=== PATIENT | female | born 1955 | race Native Hawaiian/Other Pacific Islander ===

== ENCOUNTER 2016-06-13 13:25 | Inpatient (IN) | payer OTHER ==
[~2016-06-13] VITALS: Ht 162.6 cm; Wt 72.7 kg
[2016-06-13] VITALS (10 sets, daily range): BP systolic 60–139; BP diastolic 36–95; PULSE 84–104; RESP 16–20; TEMP 96.5–98.5; O2SAT 92–98
[~2016-06-13 13:25] MED LIST: FURO1TAB93 PO; LEVA500T PO; LORT10TA PO; PYRI200T4 PO; TRAZ150T75 PO; ZYRT10TA12 PO
[2016-06-13] MEDS ORDERED: ZYRT10CA PO (14:09)
[2016-06-13] MEDS ORDERED: BACT800T5 PO (14:09)
[2016-06-13] MEDS ORDERED: SODIUM CHLOR 0.9% 1000 ML INJ 1,000 ML IV SCH (14:23)
[2016-06-13] MEDS ORDERED: SODIUM CHLORIDE 0.9% FLUSH 10 ML FLUSH IV FLUSH PRN ×2 (14:30→16:15)
[2016-06-13] MEDS ORDERED: ONDANSETRON HCL 4 MG/2 ML VIAL IVP ONE ×2 (14:30→16:00)
[2016-06-13 15:16] LABS: AUTOMATED NEUTROPHIL # 19.2 TH/MM3 (1.8-7.7); BASOPHIL % 0.2 % (0.0-2.0); EOSINOPHIL # 0.2 TH/MM3 (0-0.4); EOSINOPHIL % 0.8 % (0.0-4.0); HEMATOCRIT 30.2 % (35.0-46.0); HEMO FLAGS DIFF FINAL; LYMPH % 5.6 % (9.0-44.0); LYMPHOCYTE # 1.2 TH/MM3 (1.0-4.8); MEAN CORPUSCULAR HEMOGLOBIN 27.4 PG (27.0-34.0); MONO % 3.8 % (0.0-8.0); NEUT % 89.6 % (16.0-70.0); PLATELET COUNT 348 TH/MM3 (150-450); RED BLOOD COUNT 3.64 MIL/MM3 (4.00-5.30); RED CELL DISTRIBUTION WIDTH 13.6 % (11.6-17.2); WHITE BLOOD COUNT 21.4 TH/MM3 (4.0-11.0)
[2016-06-13 15:17] LABS: BACTERIA, URINE MANY /hpf; BLOOD, URINE LARGE (NEG); COMMENT (UR) CULTURE INDICATED; CULTURE IF INDICATED CULTURE INDICATED; GLUCOSE,URINE NEG (NEG); KETONE, URINE NEG (NEG); NITRITE,URINE NEG (NEG); PH, URINE 6.5 (5.0-8.5); SQUAMOUS EPITHELIAL CELL URINE 9 /hpf (0-5); URINE COLOR YELLOW (YELLW/STRAW)
[2016-06-13 15:29] LABS: ALT (GPT) 19 U/L (10-53); ANION GAP 12 MEQ/L (5-15); AST (GOT) 11 U/L (15-37); BICARBONATE 19.6 MEQ/L (21.0-32.0); BLOOD UREA NITROGEN 40 MG/DL (7-18); CHLORIDE 104 MEQ/L (98-107); GLOMERULAR FILTRATION RATE 14 ML/MIN (>89); POTASSIUM 3.6 MEQ/L (3.5-5.1); SODIUM (NA) 136 MEQ/L (136-145)
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
[2016-06-13 15:31] LABS: ALKALINE PHOSPHATASE 90 U/L (45-117); TOTAL BILIRUBIN ADULT 0.3 MG/DL (0.2-1.0)
[2016-06-13] MEDS ORDERED: PIPERACIL-TAZO 4.5 GM PREMIX 100 ML IV STA (15:56)
[2016-06-13] MEDS ORDERED: MORPHINE SULFATE 4 MG/ML INJ IV ONE (16:00)
[2016-06-13] MEDS ORDERED: SODIUM CHLOR 0.9% 1000 ML INJ 1,000 ML IV ONE ×3 (16:06→16:15)
[2016-06-13] MEDS ORDERED: SODIUM CHLOR 0.9% 1000 ML INJ 100 ML IV ONE (16:06)
[2016-06-13] MEDS ORDERED: CHLORHEXIDINE GLUCONATE 2 % 1 PACK (2 CLOTHS) TOP PRN (16:15)
[2016-06-13] MEDS ORDERED: MISCELLANEOUS NURSING INFORMATION XX SCH (16:15)
[2016-06-13] MEDS ORDERED: RESP: ALBUTEROL 2.5 MG/IPRATROPIUM 0.5 MG NEB (PRN) NEB (16:45)
[2016-06-13] MEDS ORDERED: SODIUM CHLOR 0.9% 1000 ML INJ 2,000 ML IV ONE (17:00)
[2016-06-13] MEDS ORDERED: VANCOMYCIN INJ 1,000 MG in SODIUM CHLOR 0.9% 250 ML INJ 250 ML IV ONE (17:00)
--- NOTE | 2016-06-13 17:11 | RADRPT ---
EXAM DATE/TIME: 06/13/2016 15:27 [facility] COMPARISON: CHEST SINGLE AP, July 22, 2012, 21:41. INDICATIONS : Chest pain. MEDICAL HISTORY : urinary tract infection x 2 weeks SURGICAL HISTORY : None. ENCOUNTER: Initial ACUITY: 2 weeks PAIN SCORE: 9/10 LOCATION: Bilateral chest lower FINDINGS: One focally clear. No pleural effusion is evident. Cardiomediastinal contours are satisfactory with h eart size upper limits of normal for technique and projection. CONCLUSION: No acute disease Noman Sam MD on June 13, 2016 at 17:08 Board Certified Radiologist. This report was verified electronically.
--- NOTE | 2016-06-13 17:13 | RADRPT ---
EXAM DATE/TIME: 06/13/2016 15:33 [facility] COMPARISON: CHEST SINGLE AP, June 13, 2016, 15:27. INDICATIONS : Constipation. MEDICAL HISTORY : urinary tract infection x 2 weeks. SURGICAL HISTORY : None. ENCOUNTER: Initial ACUITY: 2 weeks PAIN SCORE: 9/10 LOCATION: Bilateral abdomen FINDINGS: There is mild gaseous distention of bowel loops seen over the upper abdomen. What appears to be a seg ment of the transverse colon is mildly dilated to about 7 cm. There is no evidence of pneumoperitoneu m. No suspicious calcific densities are identified. There is degenerative change and scoliosis noted in the spine. CONCLUSION: Nonspecific gaseous distention of bowel Noman Sam MD on June 13, 2016 at 17:10 Board Certified Radiologist. This report was verified electronically.
[2016-06-13] MEDS: VASOPRESSIN INJ 40 UNITS in DEXTROSE 5% IN WATER 100ML INJ 98 ML IV SCH ×2 (17:34)
[2016-06-13] MEDS ORDERED: DIATRIZOATE MEGLUM/DIATRIZOATE SOD 9 ML CUP ONE ×2 (17:41)
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
[2016-06-13] MEDS ORDERED: DIATRIZOATE MEGLUM/DIATRIZOATE SOD 9 ML CUP PO ONE (18:15)
--- NOTE | 2016-06-13 20:17 | RADRPT ---
EXAM DATE/TIME: 06/13/2016 19:25 [facility] COMPARISON: CT ABDOMEN & PELVIS W/O CONTRAST, July 23, 2012, 0:28. INDICATIONS : Sepsis, abdominal pain and vomiting. ORAL CONTRAST: No oral contrast ingested. RADIATION DOSE: 14.04 CTDIvol (mGy) MEDICAL HISTORY : Neurogenic bladder. Paraplegic. Constipation. SURGICAL HISTORY : None. ENCOUNTER: Initial ACUITY: 1 week PAIN SCALE: 7/10 LOCATION: Bilateral lower quadrant TECHNIQUE: Volumetric scanning of the abdomen and pelvis was performed. Using automated exposure control and ad justment of the mA and/or kV according to patient size, radiation dose was kept as low as reasonably achievable to obtain optimal diagnostic quality images. FINDINGS: LOWER LUNGS: There is atelectasis in the lung bases and small effusions. Minimal pericardial fluid present. LIVER: Homogeneous density without lesion. There is no dilation of the biliary tree. No calcified gallston es. SPLEEN: Normal size without lesion. PANCREAS: Within normal limits. KIDNEYS: Moderate bilateral hydronephrosis and hydroureter which are unchanged from the previous examination. ADRENAL GLANDS: Within normal limits. VASCULAR: There is no aortic aneurysm. BOWEL/MESENTERY: The stomach, small bowel, and colon demonstrate no acute abnormality. There is no free intraperitone al air or fluid. ABDOMINAL WALL: Within normal limits. RETROPERITONEUM: There is no lymphadenopathy. BLADDER: No wall thickening or mass. REPRODUCTIVE: Within normal limits. INGUINAL: There is no lymphadenopathy or hernia. MUSCULOSKELETAL: Previous pinning of the left hip. Presumed dystrophic calcification lateral to the left hip joint. So ft tissue density probable scarring adjacent to the right ischial tuberosity which is similar to prev ious, however incompletely seen.. CONCLUSION: Stable abdomen appearance as described above Noman Sam MD on June 13, 2016 at 20:11 Board Certified Radiologist. This report was verified electronically.
[2016-06-13] MEDS: SODIUM CHLORIDE 0.9% FLUSH 10 ML FLUSH IV FLUSH SCH (21:00)
[2016-06-13 21:46] LABS: HEMATOCRIT 29.9 % (35.0-46.0); MEAN CELL VOLUME 83.4 FL (80.0-100.0); MEAN CORPUSCULAR HEMOGLOBIN 25.9 PG (27.0-34.0); MEAN CORPUSCULAR HGB CONC 31.1 % (32.0-36.0); PLATELET COUNT 324 TH/MM3 (150-450); RED BLOOD COUNT 3.59 MIL/MM3 (4.00-5.30); RED CELL DISTRIBUTION WIDTH 13.5 % (11.6-17.2); REVIEW FLAG FINAL; WHITE BLOOD COUNT 24.9 TH/MM3 (4.0-11.0)
[2016-06-13 22:04] LABS: BICARBONATE 15.4 MEQ/L (21.0-32.0); POTASSIUM 3.8 MEQ/L (3.5-5.1); TOTAL BILIRUBIN ADULT 0.3 MG/DL (0.2-1.0)
[2016-06-13 22:08] LABS: CALCIUM-PROTEIN CORRECTED 7.4 MG/DL (8.5-10.1)
[2016-06-13] MEDS: LACTATED RINGER'S 1000 ML INJ 1,000 ML IV SCH ×2 (22:23→22:24)
[2016-06-13] MEDS: NOREPINEPHRINE-DEXTROSE DRIP 250 ML IV SCH (22:23)
[2016-06-13] MEDS: ENOXAPARIN SODIUM 30 MG/0.3 ML SYRINGE SQ SCH (22:24)
[2016-06-13] MEDS: PIPERACIL-TAZO 2.25 GM PREMIX 50 ML IV SCH (23:31)
[2016-06-14] VITALS (14 sets, daily range): BP systolic 112–139; BP diastolic 76–87; PULSE 59–113; RESP 17–28; TEMP 97.6–98.6; O2SAT 94–98
[2016-06-14] MEDS ORDERED: ALBUMIN HUMAN 5% 25 GM/500 ML BOTTLE IV ONE (00:45)
[2016-06-14] MEDS: MIDODRINE 5 MG TAB PO SCH ×4 (00:50→16:30)
[2016-06-14] MEDS: HYDROCORTISONE SOD SUCCINATE 100 MG VIAL IV PUSH SCH ×4 (00:50→18:44)
[2016-06-14] MEDS: ACETAMINOPHEN 325 MG TAB PO PRN (00:51)
[2016-06-14] MEDS: CHLORHEXIDINE GLUCONATE 2 % 1 PACK (2 CLOTHS) TOP SCH (04:00)
--- NOTE | 2016-06-14 04:27 | PD.PROCEDR ---
Procedure Note Procedure A time-out was completed verifying correct patient, procedure, site, positioning , and special equipment if applicable. The patient was placed in a dependent position appropriate for central line placement based on the vein to be cannulated. The patients right groin was prepped and draped in sterile fashion. 1% Lidocaine was used to anesthetize the surrounding skin area. A triple lumen 9-Turkish Cordis catheter was introduced into the the common femoral vein using the Seldinger technique and under ultrasound guidance. The catheter was threaded smoothly over the guide wire and appropriate blood return was obtained. Each lumen of the catheter was evacuated of air and flushed with sterile saline. The catheter was then sutured in place to the skin and a sterile dressing applied. Perfusion to the extremity distal to the point of catheter insertion was checked and found to be adequate. Estimated Blood Loss: 1ml The patient tolerated the procedure well and there were no complications. Ej Johnson MD Jun 14, 2016 04:27
[2016-06-14] MEDS: NOREPINEPHRINE-DEXTROSE DRIP 250 ML IV SCH (05:36)
[2016-06-14] MEDS: LACTATED RINGER'S 1000 ML INJ 1,000 ML IV SCH ×2 (05:37→13:00)
[2016-06-14 06:03] LABS: AUTOMATED NEUTROPHIL # 22.1 TH/MM3 (1.8-7.7); BASOPHIL % 0.1 % (0.0-2.0); HEMO FLAGS DIFF FINAL; LYMPHOCYTE # 0.9 TH/MM3 (1.0-4.8); MEAN CELL VOLUME 84.3 FL (80.0-100.0); MEAN CORPUSCULAR HEMOGLOBIN 25.7 PG (27.0-34.0); MEAN CORPUSCULAR HGB CONC 30.5 % (32.0-36.0); MONO % 2.5 % (0.0-8.0); NEUT % 93.4 % (16.0-70.0); PLATELET COUNT 319 TH/MM3 (150-450); RED BLOOD COUNT 3.56 MIL/MM3 (4.00-5.30); RED CELL DISTRIBUTION WIDTH 13.6 % (11.6-17.2); WHITE BLOOD COUNT 23.6 TH/MM3 (4.0-11.0)
[2016-06-14 06:32] LABS: ALKALINE PHOSPHATASE 110 U/L (45-117); ALT (GPT) 19 U/L (10-53); ANION GAP 10 MEQ/L (5-15); AST (GOT) 15 U/L (15-37); BICARBONATE 18.9 MEQ/L (21.0-32.0); BLOOD UREA NITROGEN 25 MG/DL (7-18); CHLORIDE 113 MEQ/L (98-107); GLOMERULAR FILTRATION RATE 26 ML/MIN (>89); SODIUM (NA) 142 MEQ/L (136-145); TOTAL BILIRUBIN ADULT 0.4 MG/DL (0.2-1.0)
[2016-06-14] MEDS: SODIUM CHLORIDE 0.9% FLUSH 10 ML FLUSH IV FLUSH SCH ×2 (09:00→21:30)
[2016-06-14] MEDS: PIPERACIL-TAZO 2.25 GM PREMIX 50 ML IV SCH ×2 (10:24→16:30)
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
[2016-06-14] MEDS: VASOPRESSIN INJ 40 UNITS in DEXTROSE 5% IN WATER 100ML INJ 98 ML IV SCH ×2 (15:14)
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
[2016-06-14] MEDS: oxyCODONE/ACETAMINOPHEN 5 MG/325 MG TAB PO PRN (16:30)
[2016-06-14] MEDS: PANTOPRAZOLE SODIUM 40 MG VIAL IV PUSH SCH ×2 (18:44→18:45)
[2016-06-14] MEDS: ENOXAPARIN SODIUM 30 MG/0.3 ML SYRINGE SQ SCH (20:00)
[2016-06-14] MEDS: ONDANSETRON HCL 4 MG/2 ML VIAL IV PRN (21:29)
[2016-06-14] MEDS ORDERED: LEVOFLOXACIN 500 MG PREMIX INJ 100 ML IV SCH (23:00)
[2016-06-15] VITALS (14 sets, daily range): BP systolic 99–159; BP diastolic 63–98; PULSE 65–85; RESP 14–22; TEMP 97.7–98.3; O2SAT 91–96
[2016-06-15] MEDS: PIPERACIL-TAZO 2.25 GM PREMIX 50 ML IV SCH ×2 (00:30→07:54)
[2016-06-15] MEDS: HYDROCORTISONE SOD SUCCINATE 100 MG VIAL IV PUSH SCH ×5 (00:30→23:34)
[2016-06-15] MEDS ORDERED: METOCLOPRAMIDE HCL 10 MG/2 ML VIAL IV ONE (01:00)
[2016-06-15] MEDS: MIDODRINE 5 MG TAB PO SCH ×3 (05:57→17:37)
[2016-06-15] MEDS: SODIUM CHLORIDE 0.9% FLUSH 10 ML FLUSH IV FLUSH SCH ×2 (07:54→20:03)
[2016-06-15 09:28] LABS: MEAN CORPUSCULAR HEMOGLOBIN 27.3 PG (27.0-34.0); MEAN CORPUSCULAR HGB CONC 32.8 % (32.0-36.0); PLATELET COUNT 344 TH/MM3 (150-450); RED BLOOD COUNT 3.49 MIL/MM3 (4.00-5.30); RED CELL DISTRIBUTION WIDTH 13.8 % (11.6-17.2); REVIEW FLAG FINAL; WHITE BLOOD COUNT 13.9 TH/MM3 (4.0-11.0)
[2016-06-15 09:59] LABS: ALKALINE PHOSPHATASE 97 U/L (45-117); ALT (GPT) 15 U/L (10-53); ANION GAP 8 MEQ/L (5-15); AST (GOT) 8 U/L (15-37); BICARBONATE 21.7 MEQ/L (21.0-32.0); BLOOD UREA NITROGEN 22 MG/DL (7-18); CHLORIDE 114 MEQ/L (98-107); GLOMERULAR FILTRATION RATE 40 ML/MIN (>89); POTASSIUM 3.8 MEQ/L (3.5-5.1); SODIUM (NA) 144 MEQ/L (136-145); TOTAL BILIRUBIN ADULT 0.2 MG/DL (0.2-1.0)
[2016-06-15] MEDS: LACTATED RINGER'S 1000 ML INJ 1,000 ML IV SCH ×3 (10:09→20:04)
[2016-06-15] MEDS ORDERED: GLUCAGON 1 MG/ML VIAL OTHER PRN (10:15)
[2016-06-15] MEDS ORDERED: DEXTROSE 50% IN WATER 50 ML VIAL(D50) IV PUSH PRN (10:15)
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
[2016-06-15] MEDS: INSULIN NovoLIN REGULAR SUPPLEMENTAL SCALE SQ SCH ×3 (11:43→23:34)
[2016-06-15] MEDS: cefTRIAXone INJ 1,000 MG in SODIUM CHLORIDE 0.9% INJ 100 ML IV SCH (12:16)
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
[2016-06-15] MEDS ORDERED: PIPERACIL-TAZO 2.25 GM PREMIX 50 ML IV SCH (14:00)
[2016-06-15] MEDS: PANTOPRAZOLE SODIUM 40 MG VIAL IV PUSH SCH (17:37)
[2016-06-15] MEDS: ENOXAPARIN SODIUM 30 MG/0.3 ML SYRINGE SQ SCH (20:03)
[2016-06-15] MEDS: oxyCODONE/ACETAMINOPHEN 5 MG/325 MG TAB PO PRN (20:36)
--- NOTE | 2016-06-15 22:23 | HHI.IDPN ---
Subjective Subjective Remarks Delayed entry - pt seen earlier today around 1530 Off pressors afebrile growing E.coli Antibiotics zosyn Allergies: Coded Allergies: No Known Allergies (Unverified , 06/13/16) Objective . Vital Signs Date Time Temp Pulse Resp B/P Pulse Ox O2 Delivery O2 Flow Rate FiO2 06/15/16 20:00 65 06/15/16 20:00 98.3 65 22 141/74 94 06/15/16 19:00 Room Air 06/15/16 18:00 85 06/15/16 16:00 98.0 66 22 100/66 96 06/15/16 16:00 77 06/15/16 14:00 75 06/15/16 12:00 66 06/15/16 12:00 98.3 66 18 99/63 96 06/15/16 10:00 80 06/15/16 08:00 97.7 73 14 159/98 94 06/15/16 08:00 73 06/15/16 07:57 95 06/15/16 07:00 95 Room Air 06/15/16 06:00 74 06/15/16 04:00 98.0 84 18 136/72 91 06/15/16 04:00 84 06/15/16 02:00 66 06/15/16 00:00 97.7 80 20 127/72 94 06/15/16 00:00 80 06/14/16 06/14/16 06/15/16 15:00 23:00 07:00 Intake Total 1222 ml 395 ml 420 ml Output Total 1000 ml 500 ml 375 ml Balance 222 ml -105 ml 45 ml Intake Oral 240 ml 300 ml 200 ml IV Total 982 ml 95 ml 220 ml Output Urine Total 1000 ml 500 ml 375 ml # Bowel Movements 0 0 . Laboratory Tests Test 06/14/16 06/15/16 05:28 08:00 White Blood Count 23.6 TH/MM3 13.9 TH/MM3 Red Blood Count 3.56 MIL/MM3 3.49 MIL/MM3 Hemoglobin 9.2 GM/DL 9.5 GM/DL Hematocrit 30.0 % 29.0 % Mean Corpuscular Volume 84.3 FL 83.0 FL Mean Corpuscular Hemoglobin 25.7 PG 27.3 PG Mean Corpuscular Hemoglobin 30.5 % 32.8 % Concent Red Cell Distribution Width 13.6 % 13.8 % Platelet Count 319 TH/MM3 344 TH/MM3 Mean Platelet Volume 7.5 FL 8.0 FL Neutrophils (%) (Auto) 93.4 % Lymphocytes (%) (Auto) 4.0 % Monocytes (%) (Auto) 2.5 % Eosinophils (%) (Auto) 0.0 % Basophils (%) (Auto) 0.1 % Neutrophils # (Auto) 22.1 TH/MM3 Lymphocytes # (Auto) 0.9 TH/MM3 Monocytes # (Auto) 0.6 TH/MM3 Eosinophils # (Auto) 0.0 TH/MM3 Basophils # (Auto) 0.0 TH/MM3 CBC Comment DIFF FINAL Differential Comment Laboratory Tests Test 06/14/16 06/14/16 06/15/16 05:28 05:29 08:00 Sodium Level 142 MEQ/L 144 MEQ/L Potassium Level 4.0 MEQ/L 3.8 MEQ/L Chloride Level 113 MEQ/L 114 MEQ/L Carbon Dioxide Level 18.9 MEQ/L 21.7 MEQ/L Anion Gap 10 MEQ/L 8 MEQ/L Blood Urea Nitrogen 25 MG/DL 22 MG/DL Creatinine 1.99 MG/DL 1.36 MG/DL Estimat Glomerular Filtration 26 ML/MIN 40 ML/MIN Rate Random Glucose 159 MG/DL 135 MG/DL Calcium Level 8.1 MG/DL 8.6 MG/DL Total Bilirubin 0.4 MG/DL 0.2 MG/DL Aspartate Amino Transf 15 U/L 8 U/L (AST/SGOT) Alanine Aminotransferase 19 U/L 15 U/L (ALT/SGPT) Alkaline Phosphatase 110 U/L 97 U/L Total Protein 7.4 GM/DL 7.0 GM/DL Albumin 3.1 GM/DL 2.6 GM/DL Lactic Acid Level 1.6 mmol/L Microbiology Date/Time Procedure Status Source Growth 06/13/16 14:43 Urine Culture - Final Complete Urine Random Urine Escherichia Coli 06/13/16 14:45 Aerobic Blood Culture - Preliminary Resulted Blood Peripheral NO GROWTH IN 2 DAYS 06/13/16 14:45 Anaerobic Blood Culture - Preliminary Resulted Blood Peripheral NO GROWTH IN 2 DAYS 06/13/16 14:55 Aerobic Blood Culture - Preliminary Resulted Blood Peripheral NO GROWTH IN 2 DAYS 06/13/16 14:55 Anaerobic Blood Culture - Preliminary Resulted Blood Peripheral NO GROWTH IN 2 DAYS Imaging Last Impressions Chest X-Ray 06/13/16 0063 Signed Impressions: Service Date/Time: Monday, June 13, 2016 15:27 - CONCLUSION: No acute disease Noman Sam MD Abdomen X-Ray 06/13/16 1423 Signed Impressions: Service Date/Time: Monday, June 13, 2016 15:33 - CONCLUSION: Nonspecific gaseous distention of bowel Noman Sam MD Abdomen/Pelvis CT 06/13/16 0000 Signed Impressions: Service Date/Time: Monday, June 13, 2016 19:25 - CONCLUSION: Stable abdomen appearance as described above Noman Sam MD Physical Exam CONSTITUTIONAL/GENERAL: This is an adequately nourished patient, in no apparent distress. TUBES/LINES/DRAINS: SKIN: No jaundice, rashes, or lesions. Skin temperature appropriate. Not diaphoretic. CARDIOVASCULAR: Regular rate and rhythm without murmurs, gallops, or rubs. No JVD. Peripheral pulses symmetric. RESPIRATORY/CHEST: Symmetric, unlabored respirations. Clear to auscultation. Breath sounds equal bilaterally. No wheezes, rales, or rhonchi. GASTROINTESTINAL: Abdomen soft, non-tender, nondistended. No hepato-splenomegaly , or palpable masses. No guarding. Bowel sounds present. GENITOURINARY: Without palpable bladder distension. Garcia catheter in place with clear yellow urine MUSCULOSKELETAL: Extremities without clubbing, cyanosis, or edema. B/l foot drop No mottling or clubbing. Interosseous muscle loss bl hands LYMPHATICS: No palpable cervical or supraclavicular adenopathy. NEUROLOGICAL: Awake and alert. In complete tetraplegia .Normal speech. Follows commands with upper extremeties (paretic); lower extremeties plegic PSYCHIATRIC: calm and cooperative Assessment & Plan Remarks Complicated UTI in a pt with indwelling garcia, E.coli S CFTX, R levaquine Spinal cord injury clinically improved ' moody worthy levaquine start CFTX Keena Martinez MD Jun 15, 2016 22:23
[2016-06-15] MEDS: ONDANSETRON HCL 4 MG/2 ML VIAL IV PRN (23:39)
[2016-06-16] VITALS (14 sets, daily range): BP systolic 125–168; BP diastolic 73–97; PULSE 61–94; RESP 16–24; TEMP 97.5–98.4; O2SAT 92–99
[2016-06-16] MEDS: CHLORHEXIDINE GLUCONATE 2 % 1 PACK (2 CLOTHS) TOP SCH (03:16)
[2016-06-16 04:52] LABS: AUTOMATED NEUTROPHIL # 9.5 TH/MM3 (1.8-7.7); BASOPHIL % 0.2 % (0.0-2.0); EOSINOPHIL % 0.1 % (0.0-4.0); HEMO FLAGS DIFF FINAL; LYMPH % 9.5 % (9.0-44.0); LYMPHOCYTE # 1.1 TH/MM3 (1.0-4.8); MEAN CORPUSCULAR HEMOGLOBIN 26.2 PG (27.0-34.0); MEAN CORPUSCULAR HGB CONC 31.6 % (32.0-36.0); MONO % 4.3 % (0.0-8.0); NEUT % 85.9 % (16.0-70.0); PLATELET COUNT 338 TH/MM3 (150-450); RED BLOOD COUNT 3.62 MIL/MM3 (4.00-5.30); RED CELL DISTRIBUTION WIDTH 13.5 % (11.6-17.2); WHITE BLOOD COUNT 11.1 TH/MM3 (4.0-11.0)
[2016-06-16] MEDS: MIDODRINE 5 MG TAB PO SCH ×3 (05:06→17:43)
[2016-06-16] MEDS: HYDROCORTISONE SOD SUCCINATE 100 MG VIAL IV PUSH SCH ×3 (05:06→17:43)
[2016-06-16] MEDS: INSULIN NovoLIN REGULAR SUPPLEMENTAL SCALE SQ SCH ×3 (05:06→17:42)
[2016-06-16 05:08] LABS: BICARBONATE 21.7 MEQ/L (21.0-32.0); POTASSIUM 3.8 MEQ/L (3.5-5.1)
[2016-06-16] MEDS: SODIUM CHLORIDE 0.9% FLUSH 10 ML FLUSH IV FLUSH SCH ×2 (08:32→20:51)
[2016-06-16] MEDS: LACTATED RINGER'S 1000 ML INJ 1,000 ML IV SCH (08:32)
[2016-06-16] MEDS: cefTRIAXone INJ 1,000 MG in SODIUM CHLORIDE 0.9% INJ 100 ML IV SCH (12:51)
[2016-06-16] MEDS: ACETAMINOPHEN 325 MG TAB PO PRN (13:07)
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
[2016-06-16] MEDS ORDERED: METOPROLOL TARTRATE 5 MG/5 ML VIAL IV PUSH PRN (16:15)
[2016-06-16] MEDS ORDERED: GLYCERIN ADULT 2 GM SUPP RECTAL PRN (16:30)
[2016-06-16] MEDS: PANTOPRAZOLE SODIUM 40 MG VIAL IV PUSH SCH (17:43)
[2016-06-16] MEDS ORDERED: POLYETHYLENE GLYCOL 17 GM PKG PO PRN (19:30)
[2016-06-16] MEDS: DOCUSATE SODIUM 100 MG CAP PO SCH (20:51)
[2016-06-16] MEDS: ENOXAPARIN SODIUM 40 MG/0.4 ML SYRINGE SQ SCH (20:52)
[2016-06-17] VITALS (16 sets, daily range): BP systolic 105–148; BP diastolic 63–94; PULSE 63–87; RESP 15–24; TEMP 97.4–98.2; O2SAT 93–100
[2016-06-17] MEDS: HYDROCORTISONE SOD SUCCINATE 100 MG VIAL IV PUSH SCH ×5 (00:42→23:00)
[2016-06-17] MEDS: CHLORHEXIDINE GLUCONATE 2 % 1 PACK (2 CLOTHS) TOP SCH (04:00)
[2016-06-17] MEDS: INSULIN NovoLIN REGULAR SUPPLEMENTAL SCALE SQ SCH ×5 (05:13→22:58)
[2016-06-17] MEDS: MIDODRINE 5 MG TAB PO SCH ×3 (07:00→17:00)
[2016-06-17 07:50] LABS: BICARBONATE 25.3 MEQ/L (21.0-32.0); HEMATOCRIT 30.3 % (35.0-46.0); MAGNESIUM 1.7 MG/DL (1.5-2.5); MEAN CELL VOLUME 82.9 FL (80.0-100.0); MEAN CORPUSCULAR HEMOGLOBIN 26.7 PG (27.0-34.0); MEAN CORPUSCULAR HGB CONC 32.3 % (32.0-36.0); PLATELET COUNT 335 TH/MM3 (150-450); POTASSIUM 3.7 MEQ/L (3.5-5.1); RED BLOOD COUNT 3.65 MIL/MM3 (4.00-5.30); RED CELL DISTRIBUTION WIDTH 13.8 % (11.6-17.2); REVIEW FLAG FINAL; WHITE BLOOD COUNT 9.6 TH/MM3 (4.0-11.0)
[2016-06-17] MEDS: DOCUSATE SODIUM 100 MG CAP PO SCH ×2 (08:39→21:37)
[2016-06-17] MEDS: SODIUM CHLORIDE 0.9% FLUSH 10 ML FLUSH IV FLUSH SCH ×2 (08:39→21:00)
--- NOTE | 2016-06-17 09:15 | HHI.PR ---
Subjective Remarks Follow-up complicated UTI/spinal cord injury/respiratory insufficiency 06/17/16-patient seen and examined; currently afebrile and no acute event overnight. States she would like to be discharged home Objective Vitals Vital Signs Date Time Temp Pulse Resp B/P Pulse Ox O2 Delivery O2 Flow Rate FiO2 06/17/16 07:46 100 Nasal Cannula 1.00 06/17/16 06:00 64 06/17/16 04:00 98.1 67 20 116/80 97 06/17/16 04:00 67 06/17/16 02:00 77 06/17/16 00:00 84 06/17/16 00:00 97.6 84 24 145/93 93 06/16/16 22:00 78 06/16/16 20:00 97.6 86 21 156/97 93 06/16/16 20:00 86 06/16/16 19:02 96 21 06/16/16 19:00 91 Room Air 06/16/16 18:00 74 06/16/16 16:00 97.5 71 22 168/92 96 06/16/16 16:00 71 06/16/16 14:00 83 06/16/16 12:00 97.5 61 21 151/96 99 06/16/16 12:00 61 06/16/16 10:00 66 I/O 06/16/16 06/16/16 06/16/16 06/17/16 06/17/16 06/17/16 07:00 15:00 23:00 07:00 15:00 23:00 Intake Total 896 ml 1055 ml 480 ml 240 ml Output Total 300 ml 650 ml 700 ml 450 ml Balance 596 ml 405 ml -220 ml -210 ml Intake Oral 480 ml 240 ml IV Total 896 ml 1055 ml 0 ml 0 ml Output Urine Total 300 ml 650 ml 700 ml 450 ml # Bowel Movements 0 0 0 Result Diagram: 06/17/1670206/17/16702 Imaging Last Impressions Chest X-Ray 06/13/161422 Signed Impressions: Service Date/Time: Monday, June 13, 2016 15:27 - CONCLUSION: No acute disease Noman Sam MD Abdomen X-Ray 06/13/161422 Signed Impressions: Service Date/Time: Monday, June 13, 2016 15:33 - CONCLUSION: Nonspecific gaseous distention of bowel Noman Sam MD Abdomen/Pelvis CT 06/13/16 0000 Signed Impressions: Service Date/Time: Monday, June 13, 2016 19:25 - CONCLUSION: Stable abdomen appearance as described above Noman Sam MD Objective Remarks GENERAL: NAD SKIN: Warm and dry. HEAD: Normocephalic. EYES: No scleral icterus. No injection or drainage. NECK: Supple, trachea midline. No JVD or lymphadenopathy. CARDIOVASCULAR: Regular rate and rhythm without murmurs, gallops, or rubs. RESPIRATORY: Breath sounds equal bilaterally. No accessory muscle use. GASTROINTESTINAL: Abdomen soft, non-tender, nondistended. MUSCULOSKELETAL: No cyanosis, or edema. BACK: Nontender without obvious deformity. No CVA tenderness. Neuro:Quadriparesis A/P Problem List: (1) Sepsis ICD Code: A41.9 Status: Resolved (2) Urinary tract infection ICD Code: N39.0 Status: Acute (3) Hypotension ICD Code: I95.9 Status: Acute (4) Acute kidney injury ICD Code: N17.9 Status: Acute (5) History of paraplegia ICD Code: Z86.69 Status: Acute Assessment and Plan 61-year-old female with: Resp Insuff: Resolved and continue with DuoNeb when necessary and maintain oxygen saturation above 92%. Sepsis: Resolved, secondary to UTI. Currently on Rocephin UTI- urine cx E.coli: Currently on Rocephin per infectious disease specialist Dehydration: Resolved, status post IV fluid hydration Abdominal pain- CT abdomen pelvis did not reveal any SBO or ileus-now resolved ARIE- improving Hypotension: Continue midodrine 3 times a day Quadriparesis(complete lower extremity paralysis, some upper extremity weakness) ; continue OT Neurogenic bladder: Appreciate input from urology and continue Henderson.Moderate hydronephrosis bilaterally secondary to neurogenic bladder. Will need outpatient follow-up with urology for cystoscopy Leukocytosis: Resolved Anemia: H&H stable Endocrine: on SSI for glycemic control ; check A1c Prophylaxis: PPI/SCDs/Lovenox Transfer to [facility] MD Jun 17, 2016 09:15
[2016-06-17] MEDS: cefTRIAXone INJ 1,000 MG in SODIUM CHLORIDE 0.9% INJ 100 ML IV SCH (12:04)
[2016-06-17] MEDS: oxyCODONE/ACETAMINOPHEN 5 MG/325 MG TAB PO PRN (14:10)
[2016-06-17] MEDS: ENOXAPARIN SODIUM 40 MG/0.4 ML SYRINGE SQ SCH (21:37)
[2016-06-18] VITALS (8 sets, daily range): BP systolic 105–161; BP diastolic 73–97; PULSE 59–81; RESP 18–20; TEMP 97.4–98.6; O2SAT 92–96
[2016-06-18] MEDS: CHLORHEXIDINE GLUCONATE 2 % 1 PACK (2 CLOTHS) TOP SCH (04:00)
[2016-06-18] MEDS: INSULIN NovoLIN REGULAR SUPPLEMENTAL SCALE SQ SCH ×4 (05:21→22:11)
[2016-06-18] MEDS: MIDODRINE 5 MG TAB PO SCH (05:21)
[2016-06-18] MEDS: HYDROCORTISONE SOD SUCCINATE 100 MG VIAL IV PUSH SCH (05:21)
[2016-06-18] MEDS: ACETAMINOPHEN 325 MG TAB PO PRN (05:37)
[2016-06-18] MEDS: PANTOPRAZOLE SOD 40 MG DELAYED RELEASE TAB PO SCH (08:39)
[2016-06-18] MEDS: DOCUSATE SODIUM 100 MG CAP PO SCH ×2 (08:39→22:04)
[2016-06-18] MEDS ORDERED: SOD PHOSPHATE/SOD BIPHOSPHATE (ADULT) ENEMA 133ML PR ONE (11:00)
[2016-06-18] MEDS ORDERED: BISACODYL EC 5 MG TABEC PO PRN (11:30)
--- NOTE | 2016-06-18 11:59 | HHI.PR ---
Subjective Remarks Follow-up complicated UTI/spinal cord injury/respiratory insufficiency 06/17/16-patient seen and examined; currently afebrile and no acute event overnight. States she would like to be discharged home 06/18/16-patient seen and examined, and complains of constipation. Afebrile Objective Vitals Vital Signs Date Time Temp Pulse Resp B/P Pulse Ox O2 Delivery O2 Flow Rate FiO2 06/18/16 08:30 97.4 60 19 161/97 94 06/18/16 04:00 98.6 74 18 124/80 96 06/17/16 23:07 65 06/17/16 22:40 97.4 68 16 125/79 96 06/17/16 22:00 68 06/17/16 20:03 96 06/17/16 20:00 97.4 68 15 148/94 96 06/17/16 20:00 68 06/17/16 19:00 93 Room Air 06/17/16 18:00 87 06/17/16 16:00 97.5 68 20 105/63 96 06/17/16 16:00 68 06/17/16 14:00 63 06/17/16 12:00 75 06/17/16 12:00 98.2 75 17 120/79 94 I/O 06/17/16 06/17/16 06/17/16 06/18/16 06/18/16 06/18/16 07:00 15:00 23:00 07:00 15:00 23:00 Intake Total 240 ml 700 ml 600 ml 240 ml Output Total 450 ml 750 ml 700 ml 275 ml Balance -210 ml -50 ml -100 ml -35 ml Intake Oral 240 ml 600 ml 600 ml 240 ml IV Total 0 ml 100 ml 0 ml Output Urine Total 450 ml 750 ml 700 ml 275 ml # Bowel Movements 0 0 0 0 Result Diagram: 06/17/1670206/17/16702 Imaging Last Impressions Chest X-Ray 06/13/161422 Signed Impressions: Service Date/Time: Monday, June 13, 2016 15:27 - CONCLUSION: No acute disease Noman Sam MD Abdomen X-Ray 06/13/161422 Signed Impressions: Service Date/Time: Monday, June 13, 2016 15:33 - CONCLUSION: Nonspecific gaseous distention of bowel Noman Sam MD Abdomen/Pelvis CT 06/13/16 0000 Signed Impressions: Service Date/Time: Monday, June 13, 2016 19:25 - CONCLUSION: Stable abdomen appearance as described above Noman Sam MD Objective Remarks GENERAL: NAD SKIN: Warm and dry. HEAD: Normocephalic. EYES: No scleral icterus. No injection or drainage. NECK: Supple, trachea midline. No JVD or lymphadenopathy. CARDIOVASCULAR: Regular rate and rhythm without murmurs, gallops, or rubs. RESPIRATORY: Breath sounds equal bilaterally. No accessory muscle use. GASTROINTESTINAL: Abdomen soft, non-tender, nondistended. MUSCULOSKELETAL: No cyanosis, or edema. BACK: Nontender without obvious deformity. No CVA tenderness. Neuro:Quadriparesis Procedures none A/P Problem List: (1) Sepsis ICD Code: A41.9 Status: Resolved (2) Urinary tract infection ICD Code: N39.0 Status: Acute (3) Hypotension ICD Code: I95.9 Status: Resolved (4) Acute kidney injury ICD Code: N17.9 Status: Acute (5) History of paraplegia ICD Code: Z86.69 Status: Acute (6) Constipation ICD Code: K59.00 Status: Acute Assessment and Plan 61-year-old female with: 1-Resp Insuff: Resolved and continue with DuoNeb when necessary and maintain oxygen saturation above 92%. 2-Sepsis: Resolved, secondary to UTI. Currently on Rocephin 3-UTI- urine cx E.coli: Currently on Rocephin per infectious disease specialist 4-Dehydration: Resolved, status post IV fluid hydration 5-Abdominal pain- CT abdomen pelvis did not reveal any SBO or ileus-now resolved 6-Constipation: Fleet enema 1 now 7-ARIE- improving 8-Hypotension: Resolved therefore will discontinue midodrine 3 times a day and mineralocorticoid 9-Quadriparesis(complete lower extremity paralysis, some upper extremity weakness); continue OT 10-Neurogenic bladder: Appreciate input from urology and continue Henderson.Moderate hydronephrosis bilaterally secondary to neurogenic bladder. Will need outpatient follow-up with urology for cystoscopy 11-Leukocytosis: Resolved 12-Anemia: H&H stable Endocrine: on SSI for glycemic control ; check A1c Prophylaxis: PPI/SCDs/Lovenox Juan Luis Palmer MD Jun 18, 2016 11:59
[2016-06-18] MEDS: cefTRIAXone INJ 1,000 MG in SODIUM CHLORIDE 0.9% INJ 100 ML IV SCH (12:48)
[2016-06-18 16:52] LABS: HEMOGLOBIN A1a 1.2 %; HEMOGLOBIN A1b 1.8 %; HEMOGLOBIN Ao 85.2 %; HEMOGLOBIN LA1C 1.8 %; HEMOGLOBIN P3 5.4 %
--- NOTE | 2016-06-18 17:37 | HHI.IDPN ---
Subjective Subjective Remarks doing good afebrile Antibiotics zosyn Allergies: Coded Allergies: No Known Allergies (Unverified , 06/13/16) Objective . Vital Signs Date Time Temp Pulse Resp B/P Pulse Ox O2 Delivery O2 Flow Rate FiO2 06/18/16 16:07 98.2 81 19 136/79 95 06/18/16 12:32 97.8 59 20 123/75 92 06/18/16 08:30 97.4 60 19 161/97 94 06/18/16 08:00 96 Room Air 21 06/18/16 08:00 71 06/18/16 04:00 98.6 74 18 124/80 96 06/17/16 23:07 65 06/17/16 22:40 97.4 68 16 125/79 96 06/17/16 22:00 68 06/17/16 20:03 96 06/17/16 20:00 97.4 68 15 148/94 96 06/17/16 20:00 68 06/17/16 19:00 93 Room Air 06/17/16 18:00 87 06/17/16 06/17/16 06/18/16 15:00 23:00 07:00 Intake Total 700 ml 600 ml 240 ml Output Total 750 ml 700 ml 275 ml Balance -50 ml -100 ml -35 ml Intake Oral 600 ml 600 ml 240 ml IV Total 100 ml 0 ml Output Urine Total 750 ml 700 ml 275 ml # Bowel Movements 0 0 0 . Laboratory Tests Test 06/17/16 07:03 White Blood Count 9.6 TH/MM3 Red Blood Count 3.65 MIL/MM3 Hemoglobin 9.8 GM/DL Hematocrit 30.3 % Mean Corpuscular Volume 82.9 FL Mean Corpuscular Hemoglobin 26.7 PG Mean Corpuscular Hemoglobin 32.3 % Concent Red Cell Distribution Width 13.8 % Platelet Count 335 TH/MM3 Mean Platelet Volume 7.5 FL Laboratory Tests Test 06/17/16 07:03 Sodium Level 144 MEQ/L Potassium Level 3.7 MEQ/L Chloride Level 112 MEQ/L Carbon Dioxide Level 25.3 MEQ/L Anion Gap 7 MEQ/L Blood Urea Nitrogen 21 MG/DL Creatinine 1.35 MG/DL Estimat Glomerular Filtration 40 ML/MIN Rate Random Glucose 144 MG/DL Calcium Level 8.1 MG/DL Phosphorus Level 3.3 MG/DL Magnesium Level 1.7 MG/DL Imaging Last Impressions Chest X-Ray 06/13/16 1423 Signed Impressions: Service Date/Time: Monday, June 13, 2016 15:27 - CONCLUSION: No acute disease Noman Sam MD Abdomen X-Ray 06/13/16 1423 Signed Impressions: Service Date/Time: Monday, June 13, 2016 15:33 - CONCLUSION: Nonspecific gaseous distention of bowel Noman Sam MD Abdomen/Pelvis CT 06/13/16 0000 Signed Impressions: Service Date/Time: Monday, June 13, 2016 19:25 - CONCLUSION: Stable abdomen appearance as described above Noman Sam MD Physical Exam CONSTITUTIONAL/GENERAL: This is an adequately nourished patient, in no apparent distress. OOB in w/c Assessment & Plan Remarks Complicated UTI in a pt with indwelling garcia, E.coli S CFTX, R levaquine Spinal cord injury clinically improved ' dc CFTX - OK to switch to Am/clav for 1 more week - OK to dc home Keena Arcos MD Jun 18, 2016 17:37
[2016-06-18] MEDS: ENOXAPARIN SODIUM 40 MG/0.4 ML SYRINGE SQ SCH (20:00)
[2016-06-18] MEDS: AMOXICILLIN/CLAVULANATE K 500 MG TAB PO SCH (22:04)
[2016-06-18] MEDS: SODIUM CHLORIDE 0.9% FLUSH 10 ML FLUSH IV FLUSH SCH (22:06)
[2016-06-19] VITALS: BP 157/83; PULSE 78; RESP 20; TEMP 98.1; O2SAT 94
[2016-06-19] MEDS: oxyCODONE/ACETAMINOPHEN 5 MG/325 MG TAB PO PRN (01:26)
[2016-06-19] MEDS ORDERED: SOD PHOSPHATE/SOD BIPHOSPHATE (ADULT) ENEMA 133ML RECTAL ONE (03:15)
[2016-06-19 04:00] VITALS: BP 105/70; PULSE 71; RESP 16; TEMP 98.5; O2SAT 95
[2016-06-19] MEDS: CHLORHEXIDINE GLUCONATE 2 % 1 PACK (2 CLOTHS) TOP SCH (04:00)
[2016-06-19] MEDS: AMOXICILLIN/CLAVULANATE K 500 MG TAB PO SCH (05:03)
[2016-06-19] MEDS: INSULIN NovoLIN REGULAR SUPPLEMENTAL SCALE SQ SCH (05:40)
[2016-06-19 08:00] VITALS: PULSE 86
[2016-06-19 08:35] VITALS: BP 98/63; PULSE 66; RESP 17; TEMP 97.9; O2SAT 95
--- NOTE | 2016-06-19 09:02 | HHI.FF ---
Face to Face Verification Diagnosis: (1) Urinary tract infection (2) Sepsis (3) Acute kidney injury (4) History of paraplegia (5) Constipation (6) Hypotension (7) Decubitus ulcer of coccygeal region, stage 4 (8) Decubitus skin ulcer Occupational Therapy Order: Evaluate and Treat Home Health Nursing Order: Signs/symptoms of disease process Wound care and dressing changes I have seen patient Von Montgomery on 06/19/16. My clinical findings support the need for the requested home health care services because: Deconditioned w/ increased weakness Limited ability to care for self I certify that my clinical findings support that this patient is homebound because: [id number] bed/chair Poor cardiac reserve Juan Luis Palmer MD Jun 19, 2016 09:02
--- NOTE | 2016-06-19 09:04 | HHI.PR ---
Subjective Remarks Follow-up complicated UTI/spinal cord injury/respiratory insufficiency 06/17/16-patient seen and examined; currently afebrile and no acute event overnight. States she would like to be discharged home 06/18/16-patient seen and examined, and complains of constipation. Afebrile 06/19/16-patient seen and examined, she had multiple bowel movements. Afebrile. Currently on by mouth antibiotics. Objective Vitals Vital Signs Date Time Temp Pulse Resp B/P Pulse Ox O2 Delivery O2 Flow Rate FiO2 06/19/16 08:35 97.9 66 17 98/63 95 06/19/16 04:00 98.5 71 16 105/70 95 06/19/16 00:00 98.1 78 20 157/83 94 06/18/16 21:22 96 21 06/18/16 20:15 78 06/18/16 20:00 97.4 75 18 105/73 93 06/18/16 16:07 98.2 81 19 136/79 95 06/18/16 12:32 97.8 59 20 123/75 92 I/O 06/18/16 06/18/16 06/18/16 06/19/16 06/19/16 06/19/16 07:00 15:00 23:00 07:00 15:00 23:00 Intake Total 240 ml 480 ml 0 ml 240 ml Output Total 275 ml 1250 ml 0 ml 225 ml Balance -35 ml -770 ml 0 ml 15 ml Intake Oral 240 ml 480 ml 0 ml 240 ml Output Urine Total 275 ml 1250 ml 0 ml 225 ml # Bowel Movements 0 2 0 2 Result Diagram: 06/17/1670206/17/16702 Objective Remarks GENERAL: NAD SKIN: Warm and dry. HEAD: Normocephalic. EYES: No scleral icterus. No injection or drainage. NECK: Supple, trachea midline. No JVD or lymphadenopathy. CARDIOVASCULAR: Regular rate and rhythm without murmurs, gallops, or rubs. RESPIRATORY: Breath sounds equal bilaterally. No accessory muscle use. GASTROINTESTINAL: Abdomen soft, non-tender, nondistended. MUSCULOSKELETAL: No cyanosis, or edema. BACK: Nontender without obvious deformity. No CVA tenderness. Neuro:Quadriparesis Procedures none A/P Problem List: (1) Sepsis ICD Code: A41.9 Status: Resolved (2) Urinary tract infection ICD Code: N39.0 Status: Acute (3) Hypotension ICD Code: I95.9 Status: Resolved (4) Acute kidney injury ICD Code: N17.9 Status: Acute (5) History of paraplegia ICD Code: Z86.69 Status: Acute (6) Constipation ICD Code: K59.00 Status: Acute Assessment and Plan 61-year-old female with: 1-Resp Insuff: Resolved and continue with DuoNeb when necessary and maintain oxygen saturation above 92%. 2-Sepsis: Resolved, secondary to UTI. s/p Rocephin and now on Augmentin 1 more week 3-UTI- urine cx E.coli: she was treated with IV Rocephin and then switched to Augmentin 1 more week infectious disease specialist 4-Dehydration: Resolved, status post IV fluid hydration 5-Abdominal pain- CT abdomen pelvis did not reveal any SBO or ileus-now resolved 6-Constipation: Resolved 7-ARIE- improving 8-Hypotension: Initially resolved and midodrine 3 times a day and mineralocorticoid were discontinued yesterday 06/18/16 however will resume today midodrine 9-Quadriparesis(complete lower extremity paralysis, some upper extremity weakness); continue OT 10-Neurogenic bladder: Appreciate input from urology and continue Henderson.Moderate hydronephrosis bilaterally secondary to neurogenic bladder. Will need outpatient follow-up with urology for cystoscopy 11-Leukocytosis: Resolved 12-Anemia: H&H stable Prophylaxis: PPI/SCDs/Lovenox Juan Luis Palmer MD Jun 19, 2016 09:04
[2016-06-19] MEDS ORDERED: PERI8.6T PO (09:06)
[2016-06-19] MEDS ORDERED: MIDO5TAB PO (09:06)
[2016-06-19] MEDS ORDERED: AUGM500T7 PO (09:06)
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
[2016-06-19] MEDS: PANTOPRAZOLE SOD 40 MG DELAYED RELEASE TAB PO SCH (10:21)
[2016-06-19] MEDS: DOCUSATE SODIUM 100 MG CAP PO SCH (10:21)
[2016-06-19] MEDS ORDERED: MIDODRINE 5 MG TAB PO SCH (12:00)
== END 2016-06-19 10:36 | disposition home health service (06) | DRG 871 ==
LOC: NEPE 13:25 → NEDA 16:14 → HIME 19:35 → N04A 06-17 22:37
PROVIDERS: ADMIT Hospitalist; ATTEND Hospitalist
PROC: 02HV33Z Insertion of Infusion Device into Superior Vena Cava, Percutaneous Approach (ICD-10-PCS; principal; 2016-06-14)
DX: A41.9 Sepsis, unspecified organism (principal); G82.50 Quadriplegia, unspecified; R65.21 Severe sepsis with septic shock; N17.9 Acute kidney failure, unspecified; L89.309 Pressure ulcer of unspecified buttock, unspecified stage; E86.0 Dehydration; N13.30 Unspecified hydronephrosis; N39.0 Urinary tract infection, site not specified; N31.9 Neuromuscular dysfunction of bladder, unspecified; S14.106S Unspecified injury at C6 level of cervical spinal cord, sequela; B96.20 Unspecified Escherichia coli [E. coli] as the cause of diseases classified elsewhere; D64.9 Anemia, unspecified; K59.00 Constipation, unspecified; Z85.3 Personal history of malignant neoplasm of breast; Z92.3 Personal history of irradiation
CPT/HCPCS: 36556; 71010; 74000; 74176; 76937; 80048; 80053; 81001; 82948; 83036; 83605; 83690; 83735; 84100; 84703; 85025; 85027; 87040; 87077; 87086; 87186; 87641; 96374; C9113; J0696; J1650; J1720; J1956; J2270; J2405; J2543; J2765; J7030; J7120; P9045; Q9963